=== PATIENT | male | born 1935 | race Caucasian/White ===

== ENCOUNTER 2017-04-23 04:45 | Day surgery (SDC) | payer MEDICARE, BC ==
[~2017-04-23 04:45] MED LIST: Dextrose 5%-0.45% NaCl 1,000 ML IV SCH; Sodium Chloride 0.9% 10 ML Syringe FLUSH PRN
[2017-04-23] MEDS ORDERED: Midazolam 1 MG/ML 2 ML SDV ONE (05:44)
[2017-04-23] MEDS ORDERED: fentaNYL 100 MCG/2 ML SDV ONE (05:44)
[2017-04-23] MEDS ORDERED: fentaNYL 100 MCG/2 ML SDV IV ONE ×3 (06:00→06:51)
[2017-04-23] MEDS ORDERED: Midazolam 1 MG/ML 2 ML SDV IV ONE ×3 (06:01→06:51)
[2017-04-23 08:27] VITALS: BP 110/55
--- NOTE | 2017-04-23 08:56 | OR ---
DATE: 04/23/2017 PROCEDURE: Esophagogastroduodenoscopy and multiple pinch biopsies. INSTRUMENT USED: GIF-H180 Olympus video panendoscope. PREMEDICATIONS: No oral topical anesthesia used. Fentanyl 100 mcg intravenous, Versed 1.5 mg intravenous. Nasal 2 L O2 cannula. The procedure was done under pulse oximetry, BP recording, and monitoring analyst. INDICATION: The patient with unexplained iron-deficiency anemia. Esophagogastroduodenoscopy is performed for detection of any active erosive lesions, malignancy also under consideration, H. pylori status to be determined, endoscopic hemostasis therapy if needed. DESCRIPTION OF PROCEDURE: The scope was passed with ease. Adequate visualization of the esophagus was made from proximal to distal areas. No upper esophageal lesions identified. No distal esophageal stricture. No uphill or downhill esophageal varices. No Sheri-Martin tear. No evidence of erosive esophagitis by Nicholas criteria. No esophageal polyp or tumor mass identified. Z-line was seen at around 40 cm distal to the oral verge, configuration consistent with grade 1 by ZAP classification. No proximal gastric varices noted. Gastric fundus examination by retroflexion showed no polypoid lesions. No gastric ulcer, malignant mass, or vascular ectasia identified. Duodenal bulb showed no ulcer. Visualized second part of the duodenum was unremarkable. Multiple pinch biopsies were taken from the gastric antrum and proximal body and sent for PyloriTek test for H. pylori, and if negative in an hour, the tissue is to be sent for histopathology. No bleeding was noted from any of the visualized areas at the completion of examination. Photographs were taken of the duodenal bulb, gastric antrum, fundus, and distal esophagus. IMPRESSION: Normal study. The patient tolerated the procedure well. [facility] /[id number]
== END 2017-04-23 08:14 | disposition home or self-care (01) ==
LOC: DL.ENDO 04:45
PROVIDERS: ATTEND Internal Medicine Gastroenterology
DX: A04.8 Other specified bacterial intestinal infections (principal); D60.9 Acquired pure red cell aplasia, unspecified; K92.2 Gastrointestinal hemorrhage, unspecified; I48.2 Chronic atrial fibrillation; I10 Essential (primary) hypertension; E03.9 Hypothyroidism, unspecified; E78.5 Hyperlipidemia, unspecified; I73.9 Peripheral vascular disease, unspecified; Z79.01 Long term (current) use of anticoagulants; Z79.82 Long term (current) use of aspirin; Z79.899 Other long term (current) drug therapy
CPT/HCPCS: 43239; J2250; J3010; J7042

== ENCOUNTER 2017-05-20 16:23 | Emergency (ER) | payer MEDICARE, BC ==
[2017-05-20] MEDS ORDERED: Lidocaine 1% 30 ML SDV INJECT ONE (16:56)
[2017-05-20] MEDS ORDERED: Bacitracin Oint 1 GM U/D Packet TOP ONE (16:56)
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
[2017-05-20 17:23] VITALS: BP 130/72
== END 2017-05-20 17:29 | disposition home or self-care (01) ==
LOC: DL.ED 16:23
DX: S01.81XA Laceration without foreign body of other part of head, initial encounter (principal); I10 Essential (primary) hypertension; E78.00 Pure hypercholesterolemia, unspecified; E03.9 Hypothyroidism, unspecified; D64.9 Anemia, unspecified; Z79.899 Other long term (current) drug therapy; Z79.82 Long term (current) use of aspirin; W22.8XXA Striking against or struck by other objects, initial encounter
CPT/HCPCS: 12013; 99282; 99283

== ENCOUNTER 2017-11-17 11:30 | Emergency (ER) | payer MEDICARE, BC ==
--- NOTE | 2017-11-17 11:41 | EDM.PDOC ---
ED HPI GENERAL MEDICAL PROBLEM - General Chief Complaint: Gastrointestinal Problem Stated Complaint: GI BLEED. COMING FROM [facility] Time Seen by Provider: 11/17/17 11:27 Source of Information: Reports: Patient History Limitations: Reports: No Limitations - History of Present Illness INITIAL COMMENTS - FREE TEXT/NARRATIVE: This 82 yo male patient was sent to the ED by the [facility] due to a GI bleed with a hemoglobin of 6.8. The patient has a history of paroxismal a fib on anticoag. The patient reports he has had increased shortness of breath over the past 2 weeks. The patient had an EGD this past summer, but declined a colonoscopy. Onset: Gradual Duration: Week(s):, Constant, Getting Worse Location: Reports: Generalized Quality: Reports: Other Severity: Severe Improves with: Reports: Rest Worsens with: Reports: Movement Context: Reports: Activity Associated Symptoms: Reports: Shortness of Breath, Weakness - Related Data Allergies Allergy/AdvReac Type Severity Reaction Status Date / Time No Known Allergies Allergy Verified 11/17/17 11:09 Home Meds: Home Meds Aspirin [Adult Low Dose Aspirin EC] 81 mg PO DAILY 08/14/16 [History] Ezetimibe [Zetia] 10 mg PO DAILY 08/14/16 [History] Levothyroxine 112 mcg PO ACBREAKFAST 08/14/16 [History] Metoprolol Tartrate [Lopressor] 25 mg PO BID 08/14/16 [History] Multivit-Min/FA/Lycopene/Lut [Centrum Silver Tablet] 1 tab PO DAILY 08/14/16 [ History] Nitroglycerin [Nitro-Dur 0.4 MG/Hr] 1 tab SL ASDIRECTED PRN 08/14/16 [History] amLODIPine [Norvasc] 5 mg PO DAILY 08/14/16 [History] atorvaSTATin [Lipitor] 80 mg PO DAILY 08/14/16 [History] Ferrous Sulfate 325 mg PO BID 05/20/17 [History] LORazepam [Ativan] 0.5 mg PO ASDIRECTED 05/20/17 [History] Omeprazole 20 mg PO DAILY 05/20/17 [History] Rivaroxaban [Xarelto] 15 mg PO DAILY 05/20/17 [History] Furosemide [Lasix] 20 mg PO DAILY 11/17/17 [History] Past Medical History HEENT History: Reports: None Cardiovascular History: Reports: High Cholesterol, Hypertension Respiratory History: Reports: None Gastrointestinal History: Reports: None Genitourinary History: Reports: None Musculoskeletal History: Reports: None Neurological History: Reports: None Psychiatric History: Reports: None Endocrine/Metabolic History: Reports: Hypothyroidism Hematologic History: Reports: Anemia Immunologic History: Reports: None Oncologic (Cancer) History: Reports: None Dermatologic History: Reports: None Social & Family History - Family History Family Medical History: Noncontributory - Tobacco Use Smoking Status *Q: Never Smoker Second Hand Smoke Exposure: No - Caffeine Use Caffeine Use: Reports: Coffee Other Caffeine Use: 1cup coffee/day. 1 soda every 2-3 days - Recreational Drug Use Recreational Drug Use: No ED ROS GENERAL - Review of Systems Review Of Systems: ROS reveals no pertinent complaints other than HPI. ED EXAM, GI/ABD - Physical Exam Exam: See Below Exam Limited By: No Limitations General Appearance: Alert, WD/WN, Moderate Distress Eyes: Bilateral: Normal Appearance, EOMI Ears: Normal External Exam, Normal Canal, Hearing Grossly Normal, Normal TMs Nose: Normal Inspection, Normal Mucosa, No Blood Throat/Mouth: Normal Inspection, Normal Lips, Normal Teeth, Normal Gums, Normal Oropharynx, Normal Voice, No Airway Compromise Head: Atraumatic, Normocephalic Neck: Normal Inspection, Supple, Non-Tender, Full Range of Motion Respiratory/Chest: No Respiratory Distress, Lungs Clear, Normal Breath Sounds, No Accessory Muscle Use, Chest Non-Tender Cardiovascular: Normal Peripheral Pulses, No Edema, No Gallop, No JVD, No Murmur , No Rub, Irregularly Irregular GI/Abdominal Exam: Normal Bowel Sounds, Soft, Non-Tender, No Organomegaly, No Distention, No Abnormal Bruit, No Mass, Pelvis Stable (Male) Exam: Deferred Rectal (Males) Exam: Other (Done by Dr. Donnelly at the [facility] in [place] (reported hemacult positive)) Back Exam: Normal Inspection, Full Range of Motion, NT Extremities: Normal Inspection, Normal Range of Motion, Non-Tender, Normal Capillary Refill, No Pedal Edema Neurological: Alert, Oriented, CN II-XII Intact, Normal Cognition, Normal Gait, Normal Reflexes, No Motor/Sensory Deficits Psychiatric: Normal Affect, Normal Mood Skin Exam: Warm, Dry, Intact, No Rash, Pallor Lymphatic: No Adenopathy Course - Vital Signs Last Recorded V/S: Last Vital Signs Temp 36.8 C 11/17/17 11:12 Pulse 66 11/17/17 11:12 Resp 20 11/17/17 11:12 BP 114/59 L 11/17/17 11:12 Pulse Ox 100 11/17/17 11:12 - Orders/Labs/Meds Orders: Active Orders 24 hr Category Date Time Status EKG Documentation Completion [RC] URGENT Care 11/17/17 11:22 Ordered CBC WITH AUTO DIFF [HEME] Urgent Lab 11/17/17 11:22 Ordered RED BLOOD CELLS LP [BBK] Stat Lab 11/17/17 11:22 Ordered TROPONIN I [CHEM] Urgent Lab 11/17/17 11:19 Ordered TYPE AND SCREEN [BBK] Stat Lab 11/17/17 11:22 Ordered Transfuse Red Blood Cells [COMM] Urgent Oth 11/17/17 11:22 Ordered Departure - Departure Time of Disposition: 12:30 Disposition: DC/[facility] to [facility] 02 Condition: Poor Clinical Impression: GI bleed Qualifiers: GI bleed type/associated pathology: unspecified gastrointestinal hemorrhage type Qualified Code(s): K92.2 - Gastrointestinal hemorrhage, unspecified A-fib Qualifiers: Atrial fibrillation type: chronic Qualified Code(s): I48.2 - Chronic atrial fibrillation - Discharge Information Forms: Interfacility Transfer EMTALA Care Plan Goals: Discussed the patient's history, lab, examination and EKG results with Dr. Langford who accepted the patient. The patient will have 1 unit of blood started prior to transport. The patient will be transported by [facility]. - My Orders Last 24 Hours: My Active Orders 11/17/17 11:19 TROPONIN I [CHEM] Urgent 11/17/17 11:22 EKG Documentation Completion [RC] URGENT CBC WITH AUTO DIFF [HEME] Urgent RED BLOOD CELLS LP [BBK] Stat TYPE AND SCREEN [BBK] Stat Transfuse Red Blood Cells [COMM] Urgent - Assessment/Plan Last 24 Hours: My Active Orders 11/17/17 11:19 TROPONIN I [CHEM] Urgent 11/17/17 11:22 EKG Documentation Completion [RC] URGENT CBC WITH AUTO DIFF [HEME] Urgent RED BLOOD CELLS LP [BBK] Stat TYPE AND SCREEN [BBK] Stat Transfuse Red Blood Cells [COMM] Urgent
--- NOTE | 2017-11-17 12:49 | CR ---
Clinical history: 82-year-old male complaining shortness of breath. Interpretation: Sternotomy wires and large heart slightly increased in size (considering inspiration and technique) when compared to 14 August 2016 exam. Chronic mild venous congestion but, although no new signs of alveolar edema, suggestion small depende nt pleural effusion. No new lung mass, hilar lymphadenopathy or focal lobar pneumonia. CONCLUSION: Cardiomegaly and mild venous congestion. BNP? EKG?
[2017-11-17 13:17] VITALS: BP 129/62
--- NOTE | 2017-11-18 18:57 | EKG ---
11/17/2017 - JACKELYN DIMAS - FINDINGS: I reviewed the EKG and shows irregular rhythm with bradycardia, possibly atrial fibrillation. Otherwise, agree with the machine's reading. [facility] /[id number]
== END 2017-11-17 13:35 ==
LOC: DL.ED 11:30
DX: K92.2 Gastrointestinal hemorrhage, unspecified (principal); I48.2 Chronic atrial fibrillation; E78.00 Pure hypercholesterolemia, unspecified; I10 Essential (primary) hypertension; Z79.82 Long term (current) use of aspirin; Z79.899 Other long term (current) drug therapy
CPT/HCPCS: 36415; 36430; 71010; 81001; 84484; 85025; 85610; 86850; 86900; 86901; 86920; 86922; 93005; 93010; 99285; P9016; 99284

== ENCOUNTER 2018-12-23 14:03 | Emergency (ER) | payer MEDICARE, BC ==
[2018-12-23 14:14] VITALS: BP 162/75
[2018-12-23] MEDS ORDERED: Lidocaine 1% with EPINEPHrine 1:100,000 20 ML MDV INJECT ONE (14:59)
[2018-12-23] MEDS ORDERED: Oxymetazoline 0.05% Nasal Spray 15 ML Bottle NAS ONE (15:04)
[2018-12-23 15:45] LABS: ANION GAP 11.5; CHLORIDE,CL 110 mmol/L (101-111); SODIUM,NA 138 mmol/L (135-145)
--- NOTE | 2018-12-23 16:11 | EDM.PDOC ---
ED HPI GENERAL MEDICAL PROBLEM - General Chief Complaint: ENT Problem Stated Complaint: BLOODY NOSE FOR AN HOUR AND ON BLOOD THINNERS Time Seen by Provider: 12/23/18 14:38 Source of Information: Reports: Patient, RN, RN Notes Reviewed History Limitations: Reports: No Limitations - History of Present Illness INITIAL COMMENTS - FREE TEXT/NARRATIVE: Patient presents to ER with complaint of a bloody nose that began spontaneously at 1300. He is on Xarelto. States history of atrial fibrillation. Denies any further problems. Onset: Today Duration: Constant Location: Reports: Other (nose) Quality: Reports: Other (bleeding) Severity: Moderate Improves with: Reports: None Worsens with: Reports: None Associated Symptoms: Reports: No Other Symptoms - Related Data Allergies Allergy/AdvReac Type Severity Reaction Status Date / Time No Known Allergies Allergy Verified 12/23/18 14:14 Home Meds: Home Meds Aspirin [Adult Low Dose Aspirin EC] 81 mg PO DAILY 08/14/16 [History] Levothyroxine 112 mcg PO ACBREAKFAST 08/14/16 [History] Metoprolol Tartrate [Lopressor] 25 mg PO BID 08/14/16 [History] Nitroglycerin [Nitro-Dur 0.4 MG/Hr] 1 tab SL ASDIRECTED PRN 08/14/16 [History] atorvaSTATin [Lipitor] 80 mg PO DAILY 08/14/16 [History] Ferrous Sulfate 325 mg PO BID 05/20/17 [History] LORazepam [Ativan] 0.5 mg PO ASDIRECTED 05/20/17 [History] Rivaroxaban [Xarelto] 15 mg PO DAILY 05/20/17 [History] Furosemide [Lasix] 20 mg PO ASDIRECTED 11/17/17 [History] Losartan [Cozaar] 50 mg PO DAILY 12/23/18 [History] Past Medical History HEENT History: Reports: None Cardiovascular History: Reports: High Cholesterol, Hypertension Respiratory History: Reports: None Gastrointestinal History: Reports: None Genitourinary History: Reports: None Musculoskeletal History: Reports: None Neurological History: Reports: None Psychiatric History: Reports: None Endocrine/Metabolic History: Reports: Hypothyroidism Hematologic History: Reports: Anemia Immunologic History: Reports: None Oncologic (Cancer) History: Reports: None Dermatologic History: Reports: None - Past Surgical History Head Surgeries/Procedures: Reports: None Social & Family History - Family History Family Medical History: Noncontributory - Tobacco Use Smoking Status *Q: Never Smoker Second Hand Smoke Exposure: No - Caffeine Use Caffeine Use: Reports: Coffee Other Caffeine Use: 1cup coffee/day. 1 soda every 2-3 days - Recreational Drug Use Recreational Drug Use: No ED ROS ENT - Review of Systems Review Of Systems: ROS reveals no pertinent complaints other than HPI. ED EXAM, ENT - Physical Exam Exam: See Below Exam Limited By: No Limitations General Appearance: Alert, WD/WN, No Apparent Distress Eye Exam: Bilateral Eye: EOMI, Normal Inspection, PERRL Ears: Normal External Exam, Normal Canal, Hearing Grossly Normal, Normal TMs Nose: Other (Epistaxis with active bleeding) Mouth/Throat: Normal Inspection, Normal Gums, Normal Lips, Normal Oropharynx, Normal Teeth Head: Atraumatic, Normocephalic Neck: Normal Inspection, Supple, Non-Tender, Full Range of Motion Respiratory/Chest: No Respiratory Distress, Lungs Clear, Normal Breath Sounds, No Accessory Muscle Use, Chest Non-Tender Cardiovascular: Other (Danny---atrial fibrillation) GI/Abdominal: Normal Bowel Sounds, Soft, Non-Tender, No Organomegaly, No Distention, No Abnormal Bruit, No Mass (Male) Exam: Deferred Rectal (Males) Exam: Deferred Back: Normal Inspection, Full Range of Motion Extremities: Normal Inspection, Normal Range of Motion, Non-Tender, No Pedal Edema, Normal Capillary Refill Neurological: Alert, Oriented, CN II-XII Intact, Normal Cognition, Normal Gait, Normal Reflexes, No Motor/Sensory Deficits Psychiatric: Normal Affect, Normal Mood Skin: Warm, Dry, Intact, Normal Color, No Rash Lymphatic: No Adenopathy Course - Vital Signs Last Recorded V/S: Last Vital Signs Temp 98.6 F 12/23/18 14:09 Pulse 50 L 12/23/18 14:09 Resp 16 12/23/18 14:09 BP 162/75 H 12/23/18 14:09 Pulse Ox 98 12/23/18 14:09 - Orders/Labs/Meds Labs: Laboratory Tests 12/23/18 12/23/18 12/23/18 Range/Units 15:16 15:16 15:16 WBC 8.4 (5.0-10.0) 10^3/uL RBC 4.15 L (4.6-6.2) 10^6/uL Hgb 12.4 L D (14.0-18.0) g/dL Hct 37.9 L (40.0-54.0) % MCV 91.3 D (80-100) fL MCH 29.9 (27.0-34.0) pg MCHC 32.7 L (33.0-35.0) g/dL Plt Count 169 D (150-450) 10^3/uL Neut % (Auto) 60.0 (42.2-75.2) % Lymph % (Auto) 18.5 L (20.5-50.1) % Alfalfa % (Auto) 14.6 H (2-8) % Eos % (Auto) 6.5 H (1.0-3.0) % Baso % (Auto) 0.4 (0.0-1.0) % PT 12.7 H D (9.0-12.0) SEC INR 1.3 H (0.9-1.2) Sodium 138 (135-145) mmol/L Potassium 3.5 L (3.6-5.0) mmol/L Chloride 110 (101-111) mmol/L Carbon Dioxide 20.0 L (21.0-31.0) mmol/L Anion Gap 11.5 BUN 21 H (7-18) mg/dL Creatinine 1.1 (0.6-1.3) mg/dL Est Cr Clr Drug Dosing 47.50 mL/min Estimated GFR (MDRD) > 60 BUN/Creatinine Ratio 19.09 Glucose 126 H (74-105) mg/dL Calcium 8.6 (8.4-10.2) mg/dl Total Bilirubin 1.0 (0.2-1.0) mg/dL AST 27 (10-42) IU/L ALT 17 (10-60) IU/L Alkaline Phosphatase 64 (42-121) IU/L Total Protein 7.1 (6.7-8.2) g/dl Albumin 3.2 (3.2-5.5) g/dl Globulin 3.9 Albumin/Globulin Ratio 0.82 Meds: Medications Discontinued Medications Generic Name Dose Route Start Last Admin Trade Name Freq PRN Reason Stop Dose Admin Lidocaine/Epinephrine 20 ml 12/23/18 14:59 12/23/18 15:27 Xylocaine 1% With Epinephrine 1:100,000 INJECT 12/23/18 15:00 20 ml ONETIME ONE Administration Oxymetazoline HCl 1 ml 12/23/18 15:04 12/23/18 15:27 Afrin Original 0.05% Nasal [place] ELINOR 12/23/18 15:05 1 ml ONETIME ONE Administration - Re-Assessments/Exams Free Text/Narrative Re-Assessment/Exam: 12/24/18 08:18 Afrin mixed with Lidocaine 1%/Epinephrine was instilled in the left nare, then pressure held for 10 minutes. Bleeding seems to have stopped. Patient was monitored for 30 minutes after bleeding stopped. No active bleeding noted. Departure - Departure Time of Disposition: 16:13 Disposition: Home, Self-Care 01 Condition: Good Clinical Impression: Epistaxis, Hx of long-term use of blood thinners - Discharge Information *PRESCRIPTION DRUG MONITORING PROGRAM REVIEWED*: No *COPY OF PRESCRIPTION DRUG MONITORING REPORT IN PATIENT LASHAWN: No Instructions: Nosebleed, [id number] Forms: ED Department Discharge Additional Instructions: RX: Afrin mixed with Lidocaine 1%/Epinephrine. Use as directed Follow up with your primary care facility Return to the ER if you are unable to get a nosebleed stopped.
== END 2018-12-23 16:20 | disposition home or self-care (01) ==
LOC: DL.ED 14:03
DX: R04.0 Epistaxis (principal); Z79.82 Long term (current) use of aspirin; Z79.899 Other long term (current) drug therapy; Z79.01 Long term (current) use of anticoagulants
CPT/HCPCS: 36415; 80053; 85025; 85610; 99284; A9270